=== PATIENT | male | born 1940 | race Caucasian/White ===

== ENCOUNTER → 2024-02-11 08:02 | Outpatient (REF) | payer MEDICARE, OTHER, SELFPAY ==
[2024-02-11 09:57] LABS: Hematocrit 35.3 % (39.0-52.0); Hemoglobin 11.9 g/dL (13.0-18.0); Mean Corp Hgb Conc. 33.7 g/dL (33.0-37.0); Mean Corpuscular Hgb 31.3 pg (27.0-31.0); Mean Corpuscular Volume 92.9 fL (80.0-94.0); Platelet Count 160 10^3/uL (130-400); Red Cell Dist. Width 13.2 % (11.5-14.5); White Blood Cell Count 4.1 10^3/uL (4.8-10.8)
[2024-02-11 10:50] LABS: Blood Urea Nitrogen 18 mg/dl (9-20); Calcium 9.3 mg/dl (8.4-10.2); Carbon Dioxide 28 mmol/L (22-30); Chloride 103 mmol/L (98-107); Glucose 98 mg/dl (70-99); Potassium 4.5 mmol/L (3.5-5.1); Sodium 141 mmol/L (135-145); eGFR > 60.00
== END ==
LOC: SDSPAT 08:02
PROVIDERS: ATTENDING PHYSICIAN Surgery; FAMILY PHYSICIAN Internal Medicine; OTHER PHYSICIAN Internal Medicine Hematology & Oncology
DX: Z01.818 Encounter for other preprocedural examination (principal)
CPT/HCPCS: 80048; 85027; 93005

== ENCOUNTER 2024-02-22 06:22 | Day surgery (SDC) | payer MEDICARE, OTHER, SELFPAY ==
[2024-02-11 08:35] VITALS: BMI 26.3
[2024-02-22 06:24] VITALS: BP 129/67
[2024-02-22 06:29] VITALS: BMI 26.3
[2024-02-22] MEDS: NORMOSOL-R/PLASMALYTE-A 1000 IV (06:42)
[2024-02-22] MEDS: TYLENOL 1000 MG PO (06:42)
--- NOTE | 2024-02-22 06:57 | HP.FOC2 ---
Focused History & Physical
Chief Complaint
HPI:
Chief Complaint: Chronically incarcerated umbilical hernia
HPI / Indication for Planned Procedure: The patient is an 83-year-old male with a longstanding history of a protrusion present in the region of his umbilicus that has slowly increased in size over the years. Examination confirmed the presence of a
chronically incarcerated umbilical hernia. He presents today for scheduled operative correction.
Relevant Past Medical History: Other (History of prostate cancer, hypertension, atrial fibrillation, asthma, TIAs, diverticulitis and prior lower GI bleed due to diverticulosis)
Relevant Social History: Negative
Relevant Family History: Negative
Relevant Past Surgical History: Positive for (Prostatectomy, left inguinal hernia repair, left hip replacement, vasectomy, robotic sigmoidectomy, RXT for prostate CA)
Review of Systems
Review of Pertinent Systems: All Systems Negative
Medication
See Medication form for detailed medications: Yes
Medication List (including Herbals & OTC):
leuprolide 3.75 mg intramuscular syringe kit (Lupron Depot) 3.75 mg IM .EVERYSIXMONTHS Cancer 06/05/16
apixaban 5 mg tablet (Eliquis) 5 mg PO BID ##60 08/04/18
atorvastatin 40 mg tablet 40 mg PO QPM ##30 08/04/18
metoprolol succinate 50 mg tablet,extended release 24 hr 25 mg PO DAILY Heart disease/condition 08/02/20
multivitamin 1 ea PO DAILY Supplement 08/02/20
zolpidem 5 mg tablet 5 mg PO HSPRN PRN sleep 08/02/20
amlodipine 5 mg tablet 5 mg PO DAILY Blood pressure 09/02/21
acetaminophen 325 mg tablet 650 mg (2 x 325 mg) PO Q4HPRN PRN mild pain #1 tab 09/15/21
calcium 100 mg capsule 1 mg PO DAILY 02/12/24
vitamin B12 2,500 mcg-folic acid 400 mcg disintegrating tablet 1 tab PO DAILY 02/12/24
Medications Reviewed: Yes
Allergies and Reactions
Patient has Allergies: Yes
Noted Allergies and Reactions:
Allergy/AdvReac Type Severity Reaction Status Date / Time
cat dander Allergy Shortness Verified 02/22/24 06:21
of Breath
grass pollen Allergy Shortness Verified 02/22/24 06:21
of Breath
mold Allergy Shortness Verified 02/22/24 06:21
of Breath
pollen extracts Allergy Shortness Verified 02/22/24 06:21
of Breath
Pertinent Physical Exam
All Other Systems: Negative
Head/Neck: Normal
Lungs: Normal
Heart: Normal
Abdomen: Other (Chronically incarcerated umbilical hernia, 3 to 4 cm fascial defect)
Extremities: Normal
Neurological: Normal
Diagnosis / Assessment
83-year-old male presenting for scheduled operative correction symptomatic umbilical hernia
Plan / Procedure
Open umbilical herniorrhaphy with mesh
Anesthesia/Sedation to be done by Anesthesia Provider: Yes
--- NOTE | 2024-02-22 07:00 | W.SUR.PREOP ---
Pre-Operative Surgical Note
-
I have examined this patient prior to the performance of the scheduled procedure.
The patient's condition is unchanged from the time of the current History and
Physical and the patient is able to undergo the scheduled procedure.
[2024-02-22 08:45] VITALS: BP 109/60
--- NOTE | 2024-02-22 08:52 | W.IMMPOSTOP ---
Addendum entered and electronically signed by Elan Garrett MD 02/22/24 09:01:
#[id number]
Original Note:
Surgical Immed Post Op Note
-
Primary Surgeon: Tami
Assisting Surgeon: Felicia Wright PA-c
Pre-op Diagnosis: Chronically incarcerated umbilical hernia
Post-op Diagnosis: Chronically incarcerated umbilical hernia; 3 cm
Procedure Performed: Open umbilical herniorrhaphy with mesh; Ventralex ST 8 cm round
Anesthesia Type: MAC +1% lidocaine/0.25% Marcaine
Specimen / Cultures: None
Estimated Blood Loss: 4 mL
Complications: None immediate
Operative Findings: Chronically incarcerated umbilical hernia containing omentum which was easily reduced with hernia sac. Fascial edges cleared and defect measured approximately 3 cm in maximal length. Preperitoneal repair without peritoneal
injury. Ventralex ST 8 cm round mesh secured the fascia with interrupted 0 PDS x 4 transfascial sutures. Closure of defect with 0 PDS.
The assistance of Felicia Wright PA-c was required due to the complexity of the procedure. During the procedure Felicia Wright assisted with retraction/exposure and closure of the incision site.
[2024-02-22 08:59] VITALS: BP 107/67
[2024-02-22 09:00] VITALS: BP 107/67
[2024-02-22 09:15] VITALS: BP 124/72
== END 2024-02-23 09:15 | disposition home or self-care (01) ==
LOC: SDS 06:22
PROVIDERS: ATTENDING PHYSICIAN Surgery
PROC: 0WUF0JZ Supplement Abdominal Wall with Synthetic Substitute, Open Approach (ICD-10-PCS; 2024-02-22)
DX: K42.0 Umbilical hernia with obstruction, without gangrene (principal)
CPT/HCPCS: 49593; C1781

== ENCOUNTER → 2024-06-01 07:04 | Outpatient (REF) | payer MEDICARE, OTHER, SELFPAY ==
[2024-06-01 07:45] LABS: % Basophils 0.6 % (0-2); % Eosinophils 3.5 % (0-6); % Immature Granulocytes 0.2 % (0-0.5); % Monocytes 9.9 % (1.7-9.3); % Neutrophils 66.8 % (42.2-75.2); Absolute Eosinophils 0.2 10^3/uL (0-0.7); Absolute Monocytes 0.5 10^3/uL (0.1-0.6); Absolute Neutrophils 3.6 10^3/uL (1.4-6.5); Hematocrit 38.1 % (39.0-52.0); Hemoglobin 12.7 g/dL (13.0-18.0); Mean Corp Hgb Conc. 33.3 g/dL (33.0-37.0); Mean Corpuscular Hgb 31.8 pg (27.0-31.0); Mean Corpuscular Volume 95.5 fL (80.0-94.0); Mean Platelet Volume 9.8 fL (7.4-10.4); Nucleated Red Blood Cells % 0 % (-); Platelet Count 151 10^3/uL (130-400); Red Blood Cell Count 3.99 10^6/uL (4.70-6.10); Red Cell Dist. Width 13.7 % (11.5-14.5); White Blood Cell Count 5.4 10^3/uL (4.8-10.8)
[2024-06-01 08:02] LABS: ALT (SGPT) 23 U/L (0-50); AST (SGOT) 28 U/L (17-59); Albumin 4.3 g/dl (3.5-5.0); Alkaline Phosphatase 90 U/L (38-126); Blood Urea Nitrogen 20 mg/dl (9-20); Calcium 9.1 mg/dl (8.4-10.2); Carbon Dioxide 32 mmol/L (22-30); Chloride 102 mmol/L (98-107); Glucose 111 mg/dl (70-99); HDL Cholesterol 73 mg/dl; LDL Cholesterol, Calculated 60 mg/dl; Potassium 4.5 mmol/L (3.5-5.1); Sodium 138 mmol/L (135-145); Total Bilirubin 0.9 mg/dl (0.2-1.3); Total Cholesterol 158 mg/dl (50-199); Total Protein 6.7 g/dl (6.3-8.2); Triglyceride 125 mg/dl (10-149); Very Low Density Lipoprotein 25 mg/dl (0-30); eGFR > 60.00
[2024-06-01 08:32] LABS: TSH 2.31 uIU/ml (0.47-4.68)
== END ==
LOC: REG 07:04
PROVIDERS: ATTENDING PHYSICIAN Internal Medicine; OTHER PHYSICIAN Internal Medicine Hematology & Oncology; OTHER PHYSICIAN Radiology Diagnostic Radiology
DX: I48.20 Chronic atrial fibrillation, unspecified (principal); I10 Essential (primary) hypertension; C61 Malignant neoplasm of prostate; E78.00 Pure hypercholesterolemia, unspecified; G62.0 Drug-induced polyneuropathy; T45.1X5A Adverse effect of antineoplastic and immunosuppressive drugs, initial encounter; D64.9 Anemia, unspecified; Z00.00 Encounter for general adult medical examination without abnormal findings
CPT/HCPCS: 36415; 80053; 80061; 84443; 85025

== ENCOUNTER → 2024-08-31 10:36 | Outpatient (REF) | payer MEDICARE, OTHER, SELFPAY | LOC: RAD 10:36 | PROVIDERS: ATTENDING PHYSICIAN Radiology Diagnostic Radiology; FAMILY PHYSICIAN Internal Medicine | DX: M25.562 Pain in left knee (principal) | CPT/HCPCS: 73564 ==

== ENCOUNTER 2024-09-22 12:05 | Inpatient (IN) | payer MEDICARE, OTHER, SELFPAY ==
[2024-09-22] VITALS (11 sets, daily range): BP systolic 110–131; BP diastolic 53–83; BMI 28.6; BMI 27.6
[2024-09-22 06:57] LABS: Urine Albumin 4+ (Neg - Trace); Urine Bilirubin Negative (Negative); Urine Character Bloody (Clear); Urine Color Red; Urine Glucose Negative (Negative); Urine Ketone 1+ (Negative); Urine Leukocyte Negative (Negative); Urine Nitrite Negative (Negative); Urine Occult Blood 4+ (Negative); Urine Specific Gravity 1.015 (<1.030); Urine Urobilinogen Negative (Neg - 1+)
--- NOTE | 2024-09-22 06:57 | ED.GENMED ---
History of Present Illness
General
Chief Complaint: Male Genito-Urinary Symptoms
Source: patient
Exam Limitations: none
Time Seen by Provider: 09/22/24 06:11
Nursing documentation reviewed up to this point in time: agreed with
History of Present Illness
History of Present Illness:
Patient with history of chronic atrial fibrillation on Eliquis and BPH, presents to ED secondary to inability to urinate along with abdominal discomfort since last night. Denies fever or chills. Denies vomiting. Denies trauma. No recent change
in medications or diet. Denies recent illness. Denies back pain. Patient does state that secondary to BPH, and along with taking Eliquis, patient has had intermittent episodes of bleeding with urination and passage of small clots in the past,
which has always resolved spontaneously with straining.
Past History
Past History
ED Past Medical History: Arrthythmia, Cancer (Prostate CA) and Other (Prostate cancer, borderline hypertension )
Social History
Tobacco: Non-smoker
Alcohol: Occasional
Drug: None
Personal:
Living: with family
Employment: Retired
Family History
Family History: Other (Noncontributory)
Review of Systems
Review of Systems
Allergies reviewed?: Yes
All Other Systems: ROS reviewed and negative except as documented in HPI and ROS
Constitutional: Reports no symptoms; Denies fever or chills
ABD/GI: Reports abdominal pain; Denies no symptoms or vomiting
: Reports difficulty voiding
Musculoskeletal: Reports no symptoms
Skin: Reports no symptoms
Neurological: Reports no symptoms
Phy Exam
Physical Exam
Physical Exam:
Physical Exam
General: mild distress, not acutely ill. afebrile
Head: nc/at. eomi
Neck: supple. normal range of motion.
Abdomen: normal bowel sounds. not tender.
Neuro: alert and oriented x 3. no focal neurological deficits
Skin: no rash
Psychiatric: well kept. interactive and cooperative
Extremities: no edema. no calf tenderness.
Course
Orders/Labs/Results
Orders:
Orders
09/22/24 06:09
Lidocaine 2% [Lidocaine Uro-Jet 2%] 1 syringe .ROUTE .STK-MED ONE
09/22/24 06:27
Bladder Scan- Treatment ONCE
Hughes [Hughes Placement- Treatment] ONCE
Reason for insertion: Acute Retention
09/22/24 06:48
Urinalysis Reflex To Culture Urgent
Date Specimen was Collected: 09/22/24
Time Specimen was Collected: 06:43
Urine Microscopic Reflex Cult Urgent
09/22/24 09:52
Tranexamic Acid 1000 mg/100 ml [Tranexamic Acid] 1,000 mg in 100 ml IV ONCE
09/22/24 09:54
CT Pelvis With Iv Contrast Urgent
Comment:
Reason For Exam: gross hematuria with hx prostectomy
09/22/24 10:08
Type+Screen Urgent
Complete Blood Count/With Diff Urgent
Comprehensive Metabolic Panel Urgent
PTT Urgent
Prothrombin Time Urgent
09/22/24 11:39
UROLOGY CONSULT Routine
Consulting Provider: Shane Desai
Was physician already notified: Yes
Comment: acute urinary retention
09/22/24 11:41
Admit/Transfer Patient As Directed
Co-Sign Provider:
Level of Care: Inpatient admission
Assign to:: Telemetry
Physician / Group: Daniel Quinteros
Diagnosis: Acute Retention Hematuria/Clots
Reason for Telemetry: Arrhythmia
Date to Stop Telemetry: 09/25/24
Time to Stop Telemetry: 11:00
Reason for Hospitalization: Acute Retention Hematuria/Clots
Expected length of stay greater than two midnights?: Yes
ELOS- Estimated Length of Stay in days: 2
I certify the patient meets the requirements for IP care: Yes
PRN Pain Medication Management As Directed
May give lesser potent ordered pain med per pt: Yes
preference::
Protocol:: Medication orders for pain may be administered in a
manner that supports deferring to patient preference
when the pt is:
- Requesting an ordered lesser potent pain medication.
Least to most potent pain medications are defined
as: acetaminophen < NSAID < tramadol < opioids
(morphine, oxycodone, hydromorphone).
- Requesting a lesser dose of the same medication IF
ORDERED.
- Requesting a less intrusive route of administration
if both routes are prescribed by the provider (PO <
IV).
09/22/24 11:49
Code Status As Directed
Resuscitation Status: Do not resuscitate
Reached after discussion with pt or family/Healthcare POA: Yes
DNR Bracelet Application ONCE
09/22/24 13:11
Acetaminophen [Tylenol] 650 mg PO Q4HPRN PRN
Bisacodyl [Dulcolax] 10 mg RECTAL [id number] PRN
Docusate W/Senna [Senokot-S] 1 tablet PO BIDPRN PRN
Polyethylene Glycol Powder [Miralax] 17 grams PO DAILYPRN PRN
09/22/24 13:11
Activity As Directed
Activity Level: With Assistance
Pneumatic Compression Sleeves As Directed
Type: Knee high
Precautions As Directed
Type of Precautions: Other
Comment: fall precautions
Vital Signs As Directed
Frequency: Per unit guidelines
DX Deep Vein Thrombosis Video Routine
09/22/24 18:00
Atorvastatin [Lipitor] 40 mg PO QPM
09/22/24 22:00
Zolpidem Tartrate [Ambien] 5 mg PO HS
09/23/24 08:00
Amlodipine [Norvasc] 5 mg PO DAILY
Cyanocobalamin [Vitamin B-12] 1,000 mcg PO DAILY
Metoprolol Xl [Toprol Xl] 25 mg PO DAILY
Multivitamin [Theragran] 1 tablet PO DAILY
Prednisone [Deltasone] 5 mg PO DAILY
abiraterone See Dose Instructions PO DAILY
09/23/24 10:13
Basic Metabolic Panel IN AM
Complete Blood Count/No Diff IN AM
Magnesium IN AM
09/24/24 06:00
Basic Metabolic Panel IN AM
Complete Blood Count/No Diff IN AM
Magnesium IN AM
09/25/24 06:00
Basic Metabolic Panel IN AM
Complete Blood Count/No Diff IN AM
Magnesium IN AM
09/25/24 11:00
DC Protocol for Telemetry ONCE
09/26/24 06:00
Basic Metabolic Panel IN AM
Complete Blood Count/No Diff IN AM
Magnesium IN AM
09/27/24 06:00
Basic Metabolic Panel IN AM
Complete Blood Count/No Diff IN AM
Magnesium IN AM
09/28/24 06:00
Basic Metabolic Panel IN AM
Complete Blood Count/No Diff IN AM
Magnesium IN AM
09/29/24 06:00
Basic Metabolic Panel IN AM
Complete Blood Count/No Diff IN AM
Magnesium IN AM
Abnormal Lab Results
09/22/24 09/22/24
06:48 10:08
RBC 3.76 L 10^6/uL
(4.70-6.10)
Hgb 12.0 L g/dL
(13.0-18.0)
Hct 34.6 L %
(39.0-52.0)
MCH 31.9 H pg
(27.0-31.0)
Absolute Neuts (auto) 7.4 H 10^3/uL
(1.4-6.5)
Absolute Lymphs (auto) 0.6 L 10^3/uL
(1.2-3.4)
Neutrophils % 87.6 H %
(42.2-75.2)
Lymphocytes % 7.5 L %
(20.5-51.1)
Chloride 109 H mmol/L
(98-107)
Glucose 125 H mg/dl
(70-99)
Total Protein 5.8 L g/dl
(6.3-8.2)
Urine Ketones 1+ A
(Negative)
Ur Occult Blood Reflex 4+ A
(Negative)
Urine RBC >100 A /HPF
(0-2)
Urine Albumin (Reflex) 4+ A
(Neg - Trace)
09/22/24 10:08
09/22/24 10:08
Vital Signs
Initial and Last Documented VS:
Initial Vital Signs
Temp Pulse Resp BP Pulse Ox
98.0 F 61 16 117/53 99
09/22/24 05:50 09/22/24 05:50 09/22/24 05:50 09/22/24 05:50 09/22/24 05:50
Last Documented Vital Signs
Temp Pulse Resp BP Pulse Ox
98.3 F 81 18 124/73 100
09/23/24 11:38 09/23/24 11:38 09/23/24 11:38 09/23/24 11:38 09/23/24 11:38
MDM/Problems Addressed
MDM/Problems Addressed:
CBI started. Due to slowing down of urine flow, hand irrigation performed with removal of large blood clots, with improvement.
Discussed with urology, . Requests admission to hospitalist service, along with recommendation to obtain CT pel, TXA, hold off Eliquis and continue CBI
*Critical Care Note
Total Time (30-74mins, 75-104mins- exclusive of procedures): Not Applicable
ED Attending Note
-
Portions of this chart may have been created with voice recognition software.� Occasional wrong word or��sound alike� substitutions may have occurred due to the inherent limitations of voice recognition software.
Discharge Plan
Departure
Patient Disposition: Admit
Date of Disposition: 09/22/24
Time of Disposition: 10:36
Admit to: Telemetry
Presentation/result/management discussed w/ accepting MD/DO: Hospitalist
Discharge Problem:
Acute urinary retention
Interventions
Interventions:
*Risk Screen - Suicide Last Done: 09/22/24 05:46
*General Assessment Last Done: 09/22/24 05:46
*Neglect/Abuse Screening Last Done: 09/22/24 05:46
*ED- Fall Risk Assessment Last Done: 09/22/24 06:01
*ED COVID-19 Vaccine History Last Done: 09/22/24 05:46
*Nursing Disposition Last Done: 09/22/24 13:06
ED-Male Genitourinary Assessment Last Done: 09/22/24 06:00
Discharge Date and Time
Discharge Date/Time: 09/22/24 13:06
[2024-09-22 08:34] LABS: Urine Red Blood Cell >100 /HPF (0-2); Urine Squamous Cell 0-2 /LPF (Few); Urine White Cell 0-2 /HPF (0-5)
--- NOTE | 2024-09-22 08:58 | EDRN ---
Pt utilized call light to alert this RN that he felt large amount of pressure. This RN assessed CBI and noted no drainage, [place] irrigated with 500ml, large amounts of clots obtained during irrigation. CBI started and returning fruit punch colored
urine. Pt reports relief of pressure.
[2024-09-22] MEDS: TRANEXAMIC ACID 100 IV (10:08)
[2024-09-22 10:21] LABS: % Basophils 0.1 % (0-2); % Eosinophils 0.4 % (0-6); % Immature Granulocytes 0.4 % (0-0.5); % Lymphocytes 7.5 % (20.5-51.1); % Neutrophils 87.6 % (42.2-75.2); Absolute Lymphocytes 0.6 10^3/uL (1.2-3.4); Absolute Monocytes 0.3 10^3/uL (0.1-0.6); Absolute Neutrophils 7.4 10^3/uL (1.4-6.5); Hematocrit 34.6 % (39.0-52.0); Mean Corp Hgb Conc. 34.7 g/dL (33.0-37.0); Mean Corpuscular Hgb 31.9 pg (27.0-31.0); Mean Platelet Volume 9.9 fL (7.4-10.4); Nucleated Red Blood Cells % 0 % (-); Platelet Count 141 10^3/uL (130-400); Red Blood Cell Count 3.76 10^6/uL (4.70-6.10); Red Cell Dist. Width 13.9 % (11.5-14.5); White Blood Cell Count 8.4 10^3/uL (4.8-10.8)
[2024-09-22 10:37] LABS: ALT (SGPT) 25 U/L (0-50); AST (SGOT) 27 U/L (17-59); Albumin 3.7 g/dl (3.5-5.0); Alkaline Phosphatase 86 U/L (38-126); Blood Urea Nitrogen 20 mg/dl (9-20); Carbon Dioxide 26 mmol/L (22-30); Chloride 109 mmol/L (98-107); Estimated Creatinine Clearance 88 ml/min; Glucose 125 mg/dl (70-99); Potassium 3.8 mmol/L (3.5-5.1); Sodium 142 mmol/L (135-145); Total Protein 5.8 g/dl (6.3-8.2); eGFR > 60.00
[2024-09-22 10:40] LABS: INR 1.09; PT 14.6 Sec (11.4-14.6)
[2024-09-22 10:41] LABS: APTT 26.2 Sec (23.4-35.0)
--- NOTE | 2024-09-22 11:35 | HPS.HSE ---
Family Physician
-
Family Physician: Nixon Manrique
Chief Complaint
-
Acute Urinary Retention
History of Present Illness
83M persistent atrial fibrillation on Eliquis, BPH, hx Prostate Ca p/w acute urinary retention and associate abd discomfort starting night prior to presentation. Denies fever chills vomiting. Reported since prior prostate ca surgery he's had
intermittent episodes transient hematuria over the years, occasional blood clots resolved with straining. VSS, initial labs unremarkable, ED discussed with Urology and patient was started on CBI and given one dose IV tranexamic acid. CT pelvis w/
IV contrast ordered, pending.
Medical History
Past Medical History
Past Medical History: Reports Other (as above)
Past Surgical History: Reports Other (as above)
Social History
Tobacco: Non-smoker
Alcohol: Occasional
Drug: None
Personal:
Living: With Family
Employment: Retired
Family History
Family History: Not pertinent (reviewed)
Allergies / Home Medications
Allergies reflects when Allergies were last updated in [facility].
Home Medications with original date entered in [facility]
Allergy/Medication List:
Allergies
Allergy/AdvReac Type Severity Reaction Status Date / Time
cat dander Allergy Shortness Verified 09/22/24 05:46
of Breath
grass pollen Allergy Shortness Verified 09/22/24 05:46
of Breath
mold Allergy Shortness Verified 09/22/24 05:46
of Breath
pollen extracts Allergy Shortness Verified 09/22/24 05:46
of Breath
Home Medications
leuprolide 3.75 mg intramuscular syringe kit (Lupron Depot) 3.75 mg IM [id number] Cancer 06/05/16
atorvastatin 40 mg tablet 40 mg PO QPM ##30 08/04/18
zolpidem 5 mg tablet 5 mg PO HS 08/02/20
amlodipine 5 mg tablet 5 mg PO DAILY Blood pressure 09/02/21
abiraterone 250 mg tablet 1,000 mg PO DAILY 09/22/24
apixaban 5 mg tablet (Eliquis) 5 mg PO BID 09/22/24
cyanocobalamin (vitamin B-12) 1,000 mcg tablet 1,000 mcg PO DAILY 09/22/24
metoprolol succinate 25 mg tablet,extended release 24 hr (Toprol XL) 25 mg PO DAILY 09/22/24
prednisone 5 mg tablet 5 mg PO DAILY 09/22/24
therapeutic multivitamin 1 tab PO DAILY 09/22/24
Review of Systems
-
A 12 point ROS was completed and negative except as noted: Yes
Constitutional: Reports Other (as below)
Physical Exam
Vital Signs
Vital Signs
Temp Pulse Resp BP Pulse Ox
98.0 F 73 13 126/83 97
09/22/24 05:50 09/22/24 10:00 09/22/24 10:00 09/22/24 10:00 09/22/24 10:00
Physical Exam
General: Other (as below)
Laboratory Results
-
09/22/24 10:08
09/22/24 10:08
Laboratory Results
PT 14.6 Sec (11.4-14.6) 09/22/24 10:08
INR 1.09 09/22/24 10:08
APTT 26.2 Sec (23.4-35.0) 09/22/24 10:08
Total Bilirubin 1.0 mg/dl (0.2-1.3) 09/22/24 10:08
AST 27 U/L (17-59) 09/22/24 10:08
ALT 25 U/L (0-50) 09/22/24 10:08
Alkaline Phosphatase 86 U/L (38-126) 09/22/24 10:08
Impression/Plan
-
ROS
General: Denies fever chills night sweats unexpected weight loss
Neuro: Denies seizure shaking loss of consciousness dizziness vertigo
Psych: denies depression hallucinations confusion manic episodes
Endocrine: Denies polyuria polydipsia polyphagia heat/cold intolerance
HEENT: Denies blindness visual disturbances epistaxis
Pulmonary: denies coughing hemoptysis sneezing sob dyspnea on exertion
Cardiovascular: denies chest pain palpitations leg swelling
Hematology: denies signs symptoms of anemia easy bruising/bleeding
Gastrointestinal: denies nausea vomiting diarrhea constipation hematemesis hematochezia melena
Genito-Urinary: reports acute retention hx hematuria with blood clots
Musculoskeletal: denies joint pain weakness
Dermatology: denies rash laceration bruising
Physical Exam
General: No pallor, cyanosis, or jaundice.
HEENT: Throat clear. PERRLA Normocephalic atraumatic
NECK: Supple. No JVD Carotid Bruits
RESPIRATORY: Lungs clear to auscultation. No crackles wheezes stridor
CVS: S1, S2 normal. RRR. No murmur, rub or gallop.
ABDOMEN: Soft, non-tender. No distension. decreased bowel sounds
EXTREMITIES: No peripheral cyanosis or edema.
BAG SEWER: AOx3 conversant coherent
IMPRESSION:
83M persistent atrial fibrillation on Eliquis, HTN, BPH, hx Prostate Ca p/w acute urinary retention and associate abd discomfort starting night prior to presentation. Denies fever chills vomiting. Reported since prior prostate ca surgery he's had
intermittent episodes transient hematuria over the years, occasional blood clots resolved with straining. VSS, initial labs unremarkable, ED discussed with Urology and patient was started on CBI and given one dose IV tranexamic acid. CT pelvis w/
IV contrast ordered, pending
PLAN:
#Acute Urinary Retention
#Hematuria with blood clots
Tele admit
Urology eval appreciated
cont CBI as per Urology
CT pelvis w contrast pending
NPO for now in case need for intervention as per Urology
#HTN
#Persistent Afib
hold Eliquis for possible Urology intervention as above
cont home Amlodipine metoprolol with holding parameters
#Hx Prostate Ca
cont abiraterone prednisone
receives Lupron injections every 6 mo outpt
dvt ppx SCD
DNR as per patient
I spent a total of 80 minutes with the patient or on the floor. More than 50% of this time involved counseling and coordination of care.
--- NOTE | 2024-09-22 14:03 | CONS.URO ---
Medical History
History of Present Illness
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
Follows primarily w/ Medical Oncologist @[facility] (Dr. Butcher).
Seen in office q6mo for Lupron 45 mg injections.
H/o self-limited and transient hematuria WITHOUT clot obstruction over last few years.
H/o weak urinary stream and straining to void w/o acute urinary retention.
[facility]MA PET/CT 05/2024 w/o bladder lesions or masses noted.
Presents w/ straining to void and hematuria w/ passage of clots at home.
20Fr 3-way catheter placed (meatal stenosis) and CBI initiated w/ irrigation of clots in ED.
CT Pelvis w/ IV contrast requested by me => some clot burden in otherwise normal-appearing bladder, catheter balloon in place.
Eliquis STOPPED on admission.
Prior urologic history as follows:
H/o mCRPC:
- 2004: s/p RRP ([facility])
- 2005: s/p salvage XRT ([facility])
- intermittent ADT initiated 2010.
- Due to briskly rising PSA, continuous hormonal ablation was initiated as of 07/2011.
- Due to PSA rise, Casodex was stopped 07/2014.
- PSA mp to 29 during 2014: enrollment in Denia OMD-201 phase III trial [Dr. Kyaw Powell], Leuprolide continuously
- 02/2020 - PSA and imaging in [facility]: per patient, PSA was 32 and mediastinal and RP LAD was noted
- trial Darolutamide thru 2020
- switched to Zytiga and Prednisone
- 08/2020 Provenge
- 11/2020 Docetaxel + Prednisone
- started on Pluvicto w/ PSA response
Past Medical History
Past Medical History: Arrhythmia (atrial fibrillation), Cancer (metastatic castrate resistant prostate cancer) and HTN
Past Surgical History: Urological (RRP (2004))
Social History
Tobacco: Non-smoker
Alcohol: None
Drug: None
Personal:
Living: With Family
Employment: Retired
Family History
Family History: Reviewed & Not Pertinent
Allergies/Home Medications
Allergies
Allergy/AdvReac Type Severity Reaction Status Date / Time
cat dander Allergy Shortness Verified 09/22/24 05:46
of Breath
grass pollen Allergy Shortness Verified 09/22/24 05:46
of Breath
mold Allergy Shortness Verified 09/22/24 05:46
of Breath
pollen extracts Allergy Shortness Verified 09/22/24 05:46
of Breath
Home Medications
�Medication �Instructions �Recorded �Confirmed �Type
leuprolide 3.75 mg intramuscular 3.75 mg IM [id number] Cancer 06/05/16 09/22/24 History
syringe kit (Lupron Depot)
atorvastatin 40 mg tablet 40 mg PO QPM ##30 08/04/18 09/22/24 Rx
zolpidem 5 mg tablet 5 mg PO HS 08/02/20 09/22/24 History
amlodipine 5 mg tablet 5 mg PO DAILY Blood pressure 09/02/21 09/22/24 History
abiraterone 250 mg tablet 1,000 mg PO DAILY 09/22/24 09/22/24 History
apixaban 5 mg tablet (Eliquis) 5 mg PO BID 09/22/24 09/22/24 History
cyanocobalamin (vitamin B-12) 1,000 mcg PO DAILY 09/22/24 09/22/24 History
1,000 mcg tablet
metoprolol succinate 25 mg 25 mg PO DAILY 09/22/24 09/22/24 History
tablet,extended release 24 hr
(Toprol XL)
prednisone 5 mg tablet 5 mg PO DAILY 09/22/24 09/22/24 History
therapeutic multivitamin 1 tab PO DAILY 09/22/24 09/22/24 History
Review of Systems
-
History Source: Patient
A 12 point Review of Systems was completed except as noted: Yes
Physical Exam
Vital Signs
Vital Signs
Temp Pulse Resp BP Pulse Ox
98.4 F 80 20 128/82 100
09/22/24 13:09 09/22/24 13:09 09/22/24 13:09 09/22/24 13:09 09/22/24 13:53
Lab / Testing Results
Laboratory Results
09/22/24 10:08
09/22/24 10:08
Physical Exam
General: Well Developed, Well Nourished and No Apparent Distress
HEENT: Normocephalic and Anicteric
Respiratory: Non Labored Respirations
Cardiac: Regular Rhythm
Breast: N/A
GI: Soft, Non Tender and Non Distended
Rectal: Deferred by Provider
Genito-urinary: Bloody Urine and Hughes Catheter
Musculoskeletal: No Edema
Skin: Warm and Dry
Neuro: AO x 3, No Motor Deficits and Nonfocal/Grossly Intact
Hematologic/Lymphatic: No Lymphadenopathy
Psych: Calm and Intact Judgement
Assessment / Plan
-
Acute urinary retention (suspected) w/ hematuria and clot obstruction
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
H/o mCRPC s/p RRP + salvage XRT
3-way catheter irrigated in ED by Dr. Galvan (after CT imaging completed) w/ clearance of moderate clot burden and lightening of UOP (pink).
Hand irrigation again performed by me at bedside in room - some small clots cleared w/ clear UOP on high rate CBI.
CT Pelvis w/ IV contrast => no significant clot burden in bladder surrounding catheter balloon.
H/H stable
Cr WNL
UA >100 RBCs, not indicative of UTI
- Bedside irrigation by Urology w/o significant clots noted and clearing of urine
- Continue CBI at high rate to keep urine light pink to clear in tubing
- HOLD Eliquis
- NPO for now - will re-evaluate later today for diet
- IV Ceftriaxone 1g ordered for urethral instrumentation
D/w patient.
D/w RN.
D/w ED physician.
Data Reviewed
-
Total Time Spent with Patient (in minutes): 80
CT Scan: Image personally visualized and interpreted, Report Reviewed by Me, Discussed with Physician, Discussed with Patient and Discussed with Family
Lab Data: Labs Reviewed, Discussed with Physician, Discussed with Patient and Discussed with Family
Old Records: Reviewed
--- NOTE | 2024-09-22 14:44 | PTCARENOTE ---
pt presented from ED via stretcher. pt is AAO*3, Vss, c/o discomfort/pain from the catheter site. pt w/ CBI. Dr. Tucker at bedside. pt is oriented to the room. call thomas within the reach. plan of care ongoing.
[2024-09-22] MEDS: ROCEPHIN 1000 MG IV (14:46)
[2024-09-22] MEDS: STERILE WATER FOR INJECTION 10 ML IV (14:46)
[2024-09-22] MEDS: LIPITOR 40 MG PO (17:07)
[2024-09-22] MEDS: AMBIEN 5 MG PO (20:53)
[2024-09-23 03:35] VITALS: BP 122/70
--- NOTE | 2024-09-23 07:49 | W.PN.HOSP.TC ---
Today's Communication/Plan
-
see a/p
Assessment / Plan
Assessment / Plan
Physical Exam
General: No pallor, cyanosis, or jaundice.
HEENT: Throat clear. PERRLA Normocephalic atraumatic
NECK: Supple. No JVD Carotid Bruits
RESPIRATORY: Lungs clear to auscultation. No crackles wheezes stridor
CVS: S1, S2 normal. RRR. No murmur, rub or gallop.
ABDOMEN: Soft, non-tender. No distension. decreased bowel sounds
: CBI in place, punch colored urine
EXTREMITIES: No peripheral cyanosis or edema.
EARLY CHILDHOOD EDUCATION SPECIALIST: AOx3 conversant coherent
IMPRESSION:
83M persistent atrial fibrillation on Eliquis, HTN, BPH, hx Prostate Ca p/w acute urinary retention and associate abd discomfort starting night prior to presentation. Denies fever chills vomiting. Reported since prior prostate ca surgery he's had
intermittent episodes transient hematuria over the years, occasional blood clots resolved with straining. VSS, initial labs unremarkable, ED discussed with Urology and patient was started on CBI and given one dose IV tranexamic acid. CT pelvis w/
IV contrast ordered, pending
PLAN:
#Acute Urinary Retention
#Hematuria with blood clots
#Radiation Cystitis exacerbated by Eliquis
Tele admit
Urology eval appreciated
cont CBI as per Urology
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
possible TOV AM 05/03 as per urology
#HTN
#Persistent Afib
cont hold Eliquis as per Urology
cont home Amlodipine metoprolol with holding parameters
#Hx Prostate Ca
cont abiraterone prednisone
receives Lupron injections every 6 mo outpt
dvt ppx SCD
DNR as per patient
I spent a total of 40 minutes with the patient or on the floor. More than 50% of this time involved counseling and coordination of care.
Anticipated Discharge: 24 - 48 hours
Subjective/Interval History
-
Date of Service: September 23, 2024
No acute distress. Ambulating. Remains on CBI, urine punch colored.
Objective Data
-
Labs:
Laboratory Results
09/23/24
06:00
WBC Pending
Hgb Pending
Hct Pending
Plt Count Pending
Sodium Pending
Potassium Pending
Chloride Pending
Carbon Dioxide Pending
BUN Pending
Creatinine Pending
Glucose Pending
Calcium Pending
Vital Signs:
Vital Signs
Temp Pulse Resp BP Pulse Ox
98.5 F 98 18 122/70 97
09/23/24 03:35 09/23/24 03:35 09/23/24 03:35 09/23/24 03:35 09/23/24 03:35
I&O
09/22/24 09/23/24 09/24/24
06:59 06:59 06:59
Intake Total 720 / 720
Output Total 8150 / 8150 -600 / -600
Balance -7430 / -7430 600 / 600
[2024-09-23 08:16] VITALS: BP 133/74
[2024-09-23] MEDS: NORVASC 5 MG PO (08:40)
[2024-09-23] MEDS: DELTASONE 5 MG PO (08:40)
[2024-09-23] MEDS: VITAMIN B-12 1000 MCG PO (08:40)
[2024-09-23] MEDS: THERAGRAN 1 TABLET PO (08:40)
[2024-09-23] MEDS: TOPROL XL 25 MG PO (08:40)
[2024-09-23 10:21] LABS: Hematocrit 34.2 % (39.0-52.0); Hemoglobin 11.7 g/dL (13.0-18.0); Mean Corp Hgb Conc. 34.2 g/dL (33.0-37.0); Mean Corpuscular Hgb 31.7 pg (27.0-31.0); Mean Corpuscular Volume 92.7 fL (80.0-94.0); Mean Platelet Volume 9.7 fL (7.4-10.4); Platelet Count 133 10^3/uL (130-400); Red Blood Cell Count 3.69 10^6/uL (4.70-6.10); Red Cell Dist. Width 13.8 % (11.5-14.5); White Blood Cell Count 8.5 10^3/uL (4.8-10.8)
[2024-09-23 11:38] VITALS: BP 124/73
--- NOTE | 2024-09-23 12:10 | W.PN.URO.CBU ---
Today's Communication / Plan
-
- Continue CBI today - wean as tolerated
- Hold Eliquis (last dose PM 09/21) - would advise holding tentatively on discharge
- Possible voiding trial in AM 09/24 - Urology will assess
- TOV vs. indwelling catheter vs. CIC on discharge
D/w patient.
D/w patient's son (Caio Torres).
Assessment / Plan
-
Acute urinary retention (suspected) w/ hematuria and clot obstruction
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
H/o mCRPC s/p RRP + salvage XRT
09/22:
- 3-way catheter irrigated in ED by Dr. Galvan (after CT imaging completed) w/ clearance of moderate clot burden and lightening of UOP (pink).
- Hand irrigation again performed by me at bedside in room - some small clots cleared w/ clear UOP on high rate CBI.
09/23:
- significant improvement in hematuria w/o clots noted
CT Pelvis w/ IV contrast => no significant clot burden in bladder surrounding catheter balloon.
H/H stable
Cr WNL
UA >100 RBCs, not indicative of UTI
Diagnosis
-
Date of Service: September 23, 2024
-
Patient Diagnosis:
Acute urinary retention (suspected) w/ hematuria and clot obstruction
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
H/o mCRPC s/p RRP + salvage XRT
Subjective
-
Urine improved in 24 hrs - faintly pink in tubing on medium CBI.
No clot obstruction or irrigation in 24 hrs.
Denies abdominal or suprapubic pain.
Objective
-
Vital Signs
Temp Pulse Resp BP Pulse Ox
98.3 F 81 18 124/73 100
09/23/24 11:38 09/23/24 11:38 09/23/24 11:38 09/23/24 11:38 09/23/24 12:04
Intake and Output
09/22/24 09/23/24 09/24/24
06:59 06:59 06:59
Intake Total 720 / 720
Output Total 8150 / 8150 -600 / -600
Balance -7430 / -7430 600 / 600
Intake:
Oral fluids 720 / 720
Output:
True Urine Output from CBI 8150 / 8150 -600 / -600
Laboratory Results
09/23/24 10:13
09/23/24 10:13
Physical Exam
-
General - well developed, well nourished, no acute distress
Abdomen - soft, non-tender, non-distended
Genitalia - 3-way catheter in place, faintly pink tinged UOP in tubing on medium CBI
Skin - warm & dry with no rash
Extremities - no clubbing, no cyanosis, no edema
Care Review
Data Reviewed
Discussed with: Hospitalist and Family
CT Scan: Report Pers Reviewed
--- NOTE | 2024-09-23 12:15 | CM ---
Met with patient to obtain information for assessment. Patient stated that he lives with his in a two story home with two steps to enter. He described himself as independent with his ADLs, personal care, dressing and bathing. He can cook,
clean, do band shover and laundry. Patient denied any DME in his home. He has never had VN services. He has not been to a SNF in the past.
Patient has a prescription plan and uses, [facility] in [place] for all of his medications.
Patient's PCP is, Nixon Manrique.
Plan: Case management will continue to follow and assist with discharge planning. Hopefully home no needs.
[2024-09-23 13:38] LABS: Blood Urea Nitrogen 13 mg/dl (9-20); Calcium 8.8 mg/dl (8.4-10.2); Carbon Dioxide 29 mmol/L (22-30); Chloride 103 mmol/L (98-107); Estimated Creatinine Clearance 88 ml/min; Glucose 134 mg/dl (70-99); Magnesium 1.9 mg/dl (1.6-2.3); Potassium 3.7 mmol/L (3.5-5.1); Sodium 139 mmol/L (135-145); eGFR > 60.00
[2024-09-23 15:37] VITALS: BP 131/74
[2024-09-23] MEDS: LIPITOR 40 MG PO (17:50)
[2024-09-23 19:37] VITALS: BP 127/70
[2024-09-23] MEDS: AMBIEN 5 MG PO (20:31)
[2024-09-23 23:51] VITALS: BP 121/82
[2024-09-24] MEDS: DITROPAN 5 MG PO (03:15)
[2024-09-24 03:17] VITALS: BP 136/89
--- NOTE | 2024-09-24 03:21 | PTCARENOTE ---
0230, pt c/o sudden inc in pain and rectal pressure. CBI draining light pink with sm clot noted in tube. missing order for CBI, notified OR ASSISTANT, order placed for CBI and irrigation. CBI irrigated with 100cc nss, no clots noted after irrigation. I/O
currently 8000cc/8000cc. bladder scanned for 500cc, CBI actively draining. Ditropan given, see Mar. pt states some decrease in pain noted after irrigation, pt unable to rate pain level.
[2024-09-24 07:10] VITALS: BP 115/64
--- NOTE | 2024-09-24 07:12 | W.PN.HOSP.TC ---
Today's Communication/Plan
-
discharge
Assessment / Plan
Assessment / Plan
Physical Exam
General: No pallor, cyanosis, or jaundice.
HEENT: Throat clear. PERRLA Normocephalic atraumatic
NECK: Supple. No JVD Carotid Bruits
RESPIRATORY: Lungs clear to auscultation. No crackles wheezes stridor
CVS: S1, S2 normal. RRR. No murmur, rub or gallop.
ABDOMEN: Soft, non-tender. No distension. decreased bowel sounds
EXTREMITIES: No peripheral cyanosis or edema.
GOLF CLUB MANAGER: AOx3 conversant coherent
IMPRESSION:
83M persistent atrial fibrillation on Eliquis, HTN, BPH, hx Prostate Ca p/w acute urinary retention and associate abd discomfort starting night prior to presentation. Denies fever chills vomiting. Reported since prior prostate ca surgery he's had
intermittent episodes transient hematuria over the years, occasional blood clots resolved with straining. VSS, initial labs unremarkable, ED discussed with Urology and patient was started on CBI and given one dose IV tranexamic acid.
PLAN:
#Acute Urinary Retention
#Hematuria with blood clots
#Radiation Cystitis exacerbated by Eliquis
Tele admit
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
Urology eval appreciated treated with CBI since weaned off passed trial of void with 100 mL urine though noted return hematuria and clots. No significant retention noted on bladder scan per RN.
Patient feeling well, not willing to stay for further monitoring, otherwise medically stable for discharge home with outpatient follow up recommendations.
#HTN
#Persistent Afib
cont hold Eliquis as per Urology
cont home Amlodipine metoprolol with holding parameters
#Hx Prostate Ca
cont abiraterone prednisone
receives Lupron injections every 6 mo outpt
dvt ppx SCD
DNR as per patient
Discussed with patient and patient's son Caio
Total Time Preparing Discharge __40 minutes including examination of the patient, summary of the hospital stay, instructions for continuing care to all relevant caregivers; and preparation of discharge records, prescriptions, and referral
forms if necessary.
Anticipated Discharge: Today
Subjective/Interval History
-
Date of Service: September 24, 2024
No acute distress resting comfortably in bed. Overnight events noted, possible bladder spasm, pain since improved after once Ditropan. Otherwise patient reports feeling well, eager to go home.
Objective Data
-
Labs:
Laboratory Results
09/24/24
06:00
WBC Pending
Hgb Pending
Hct Pending
Plt Count Pending
Sodium Pending
Potassium Pending
Chloride Pending
Carbon Dioxide Pending
BUN Pending
Creatinine Pending
Glucose Pending
Calcium Pending
Vital Signs:
Vital Signs
Temp Pulse Resp BP Pulse Ox
98.2 F 88 16 136/89 98
09/24/24 03:17 09/24/24 03:17 09/24/24 03:17 09/24/24 03:17 09/24/24 03:17
I&O
09/23/24 09/24/24 09/25/24
06:59 06:59 06:59
Intake Total 720 / 720 480 / 480
Output Total 8150 / 8150 1750 / 1750
Balance -7430 / -7430 -1270 / -1270
[2024-09-24 08:19] VITALS: BP 115/64
[2024-09-24] MEDS: TOPROL XL 25 MG PO (09:20)
[2024-09-24] MEDS: NORVASC 5 MG PO (09:20)
[2024-09-24] MEDS: DELTASONE 5 MG PO (09:20)
[2024-09-24] MEDS: VITAMIN B-12 1000 MCG PO (09:20)
[2024-09-24] MEDS: THERAGRAN 1 TABLET PO (09:20)
[2024-09-24 11:05] VITALS: BP 126/68
--- NOTE | 2024-09-24 11:31 | W.PN.URO.CBU ---
Today's Communication / Plan
-
Hughes removal/voiding trial
Assessment / Plan
-
Acute urinary retention (suspected) w/ hematuria and clot obstruction
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
H/o mCRPC s/p RRP + salvage XRT
Diagnosis
-
Date of Service: September 24, 2024
-
Patient Diagnosis:
Post Op Day:
Patient Diagnosis:
Acute urinary retention (suspected) w/ hematuria and clot obstruction
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
H/o mCRPC s/p RRP + salvage XRT
Objective
-
Vital Signs
Temp Pulse Resp BP Pulse Ox
98.7 F 77 18 126/68 97
09/24/24 11:05 09/24/24 11:05 09/24/24 11:05 09/24/24 11:05 09/24/24 11:05
Intake and Output
09/23/24 09/24/24 09/25/24
06:59 06:59 06:59
Intake Total 720 / 720 480 / 480
Output Total 8150 / 8150 1750 / 1750
Balance -7430 / -7430 -1270 / -1270
Intake:
Oral fluids 720 / 720 480 / 480
Output:
True Urine Output from CBI 8150 / 8150 1750 / 1750
Physical Exam
-
General - asleep
Abdomen - soft, non-tender, positive bowel sounds, no CVAT, no incisional pain or distention
Genitalia -peach-colored urine via Hughes
--- NOTE | 2024-09-24 15:16 | PTCARENOTE ---
Pt. voided at 1500, 100 ml dark bloody urine with clots. Dr. Quinteros made aware.
[2024-09-24 15:30] VITALS: BP 103/68
--- NOTE | 2024-09-24 16:02 | W.DCSUMMARY ---
Discharge Summary
Discharge Data
Date of Admission: 09/22/24
Date of Discharge: 09/24/24
-
Pending Results: No
Discharge Plan
-
Patient Disposition: Home (Routine Discharge)
Condition: Fair
Diet: Regular
Activity: As tolerated
Driving Restrictions: As prior to admission
Bathing Restrictions: None
Activity Restrictions/Additional Instructions:
Follow up with Urology in less than 1 week of discharge.
Hold Eliquis for now until cleared to resume as per urology.
Referrals:
Shane Desai MD [Active] - in less than 1 week
Nixon Manrique MD [Family Provider] -
Prescriptions:
Continued
Lupron Depot 3.75 MG syringe kit
3.75 mg IM [id number]
atorvastatin 40 MG tablet
40 mg PO QPM Qty: 30 0RF
zolpidem 5 MG tablet
5 mg PO HS
amlodipine 5 MG tablet
5 mg PO DAILY
abiraterone 250 mg Tablet
1,000 mg PO DAILY
therapeutic multivitamin Tablet
1 tab PO DAILY
metoprolol succinate [Toprol XL] 25 mg Tablet Extended Release 24 Hr
25 mg PO DAILY
prednisone 5 mg Tablet
5 mg PO DAILY
cyanocobalamin (vitamin B-12) 1,000 mcg Tablet
1,000 mcg PO DAILY
Held
Eliquis 5 mg Tablet
5 mg PO BID
Hold Instructions: Follow up with Urology to determine when safe to resume.
Discharge Orders:
Discharge Patient (As Directed); Ordered 09/24/24
Ordered By: Daniel Quinteros
Discharge Date and Time
Print Language: MONTENEGRIN
== END 2024-09-24 16:22 | disposition home or self-care (01) | DRG 699 ==
LOC: 4 EAST ACU 12:05
PROVIDERS: ADMITTING PHYSICIAN Internal Medicine; CONSULT PHYSICIAN Surgery; EMERGENCY PHYSICIAN Emergency Medicine; FAMILY PHYSICIAN Internal Medicine
DX: N30.41 Irradiation cystitis with hematuria (principal); D68.32 Hemorrhagic disorder due to extrinsic circulating anticoagulants; I48.19 Other persistent atrial fibrillation; N40.1 Benign prostatic hyperplasia with lower urinary tract symptoms; I10 Essential (primary) hypertension; N35.911 Unspecified urethral stricture, male, meatal; R39.16 Straining to void; R39.12 Poor urinary stream; Y84.2 Radiological procedure and radiotherapy as the cause of abnormal reaction of the patient, or of later complication, without mention of misadventure at the time of the procedure; R31.0 Gross hematuria; R33.9 Retention of urine, unspecified; Z66 Do not resuscitate; Z79.01 Long term (current) use of anticoagulants; Z85.46 Personal history of malignant neoplasm of prostate; Z79.52 Long term (current) use of systemic steroids
CPT/HCPCS: 51702; 72193; 80048; 80053; 81003; 81015; 83735; 85025; 85027; 85610; 85730; 86850; 86900; 86901; 96374; 99285; Q9967

== ENCOUNTER → 2024-09-28 10:30 | Outpatient (REF) | payer MEDICARE, OTHER, SELFPAY ==
[2024-09-28 18:01] LABS: Urine Albumin 2+ (Neg - Trace); Urine Bilirubin Negative (Negative); Urine Character Slightly Cloudy (Clear); Urine Color Yellow; Urine Glucose Negative (Negative); Urine Ketone Negative (Negative); Urine Leukocyte 1+ (Negative); Urine Nitrite Negative (Negative); Urine Occult Blood 2+ (Negative); Urine Urobilinogen Negative (Neg - 1+)
[2024-09-28 18:17] LABS: Urine Squamous Cell 0-2 /LPF (Few)
[2024-09-28 18:19] LABS: Urine Bacteria Moderate (Negative)
== END ==
LOC: CLAB 10:30
PROVIDERS: ATTENDING PHYSICIAN Surgery
DX: R39.9 Unspecified symptoms and signs involving the genitourinary system (principal)
CPT/HCPCS: 81003; 81015; 87086

== ENCOUNTER → 2025-02-15 11:01 | Outpatient (REF) | payer MEDICARE, OTHER, SELFPAY | LOC: RAD 11:01 | PROVIDERS: ATTENDING PHYSICIAN Radiology Diagnostic Radiology; FAMILY PHYSICIAN Internal Medicine | DX: M25.552 Pain in left hip (principal) | CPT/HCPCS: 73502 ==

== ENCOUNTER → 2025-02-28 08:14 | Outpatient (REF) | payer MEDICARE, OTHER, SELFPAY ==
[2025-02-28 09:02] LABS: Hematocrit 38.0 % (39.0-52.0); Hemoglobin 12.6 g/dL (13.0-18.0); Mean Corp Hgb Conc. 33.2 g/dL (33.0-37.0); Mean Corpuscular Volume 96.2 fL (80.0-94.0); Nucleated Red Blood Cells % 0 % (-); Platelet Count 166 10^3/uL (130-400); Red Cell Dist. Width 14.3 % (11.5-14.5)
[2025-02-28 09:22] LABS: ALT (SGPT) 21 U/L (0-50); AST (SGOT) 23 U/L (17-59); Albumin 4.2 g/dl (3.5-5.0); Alkaline Phosphatase 92 U/L (38-126); Blood Urea Nitrogen 26 mg/dl (9-20); Calcium 9.3 mg/dl (8.4-10.2); Carbon Dioxide 31 mmol/L (22-30); Chloride 107 mmol/L (98-107); Glucose 101 mg/dl (70-99); Potassium 4.7 mmol/L (3.5-5.1); Sodium 142 mmol/L (135-145); Total Protein 6.6 g/dl (6.3-8.2); eGFR > 60.00
[2025-02-28 09:43] LABS: PSA, Total - Diagnostic 6.72 ng/ml (0.0-4.0)
== END ==
LOC: REG 08:14
PROVIDERS: ATTENDING PHYSICIAN Physician Assistant Medical; FAMILY PHYSICIAN Internal Medicine
DX: C61 Malignant neoplasm of prostate (principal)
CPT/HCPCS: 36415; 80053; 84153; 84403; 85025

== ENCOUNTER → 2025-03-20 09:42 | Outpatient (REF) | payer MEDICARE, OTHER, SELFPAY | LOC: EMG 09:42 | PROVIDERS: ATTENDING PHYSICIAN Podiatrist Foot & Ankle Surgery | DX: R20.0 Anesthesia of skin (principal) | CPT/HCPCS: 95886; 95911 ==

== ENCOUNTER → 2025-03-29 07:06 | Outpatient (REF) | payer MEDICARE, OTHER, SELFPAY | LOC: RCS 07:06 | PROVIDERS: ATTENDING PHYSICIAN Internal Medicine Cardiovascular Disease; FAMILY PHYSICIAN Internal Medicine; REFERRING PHYSICIAN Radiology Diagnostic Radiology | DX: I10 Essential (primary) hypertension (principal); M25.559 Pain in unspecified hip | CPT/HCPCS: 72192; 93306 ==